=== PATIENT | male | born 1980 | race African-American/Black ===

== ENCOUNTER 2019-07-22 12:08 | Emergency (ER) | payer OTHER ==
[~2019-07-22] VITALS: Ht 175.3 cm; Wt 152.0 kg
[~2019-07-22 12:08] MED LIST: NITR-58 PO
[2019-07-22 12:14] VITALS: Ht 175.3 cm; Wt 152.0 kg
[2019-07-22] MEDS ORDERED: SOD CHLORIDE 0.9% 1,000 ML IV STA (13:55)
[2019-07-22 16:20] VITALS: BP 128/61; PULSE 65; RESP 17
== END 2019-07-22 16:21 | disposition home or self-care (01) ==
LOC: FTE 12:08
DX: R31.9 Hematuria, unspecified (principal)
CPT/HCPCS: 74176; 80053; 81001; 85025; 87086; 87591; 96360; 99285; J7030; 81003